=== PATIENT | female | born 1935 | race Caucasian/White ===

== ENCOUNTER 2017-05-20 05:46 | Emergency (ER) | payer OTHER ==
[~2017-05-20] VITALS: Ht 149.9 cm; Wt 61.2 kg
[~2017-05-20 05:46] MED LIST: ALEVE220 MG PO; ASPIRIN EC325 MG PO; ASPIRIN325 MG PO; ATORVASTATIN CA20 MG PO; ATORVASTATIN TAB 20M; AZITHROMYCIN250 MG1 PO; AZITHROMYCIN500 M1 PO; AZMACORT20 G1 IH; Advair 250/50 Diskus IH; BACTRIM,SEPT1 TABLET PO; BUSPAR5 MG; BUSPAR5 MG PO; BUSPIRONE HCL5 MG PO; Buspar PO; CALTRATE 600600 MG PO; CEFTIN500 MG PO; CHLORASEPTIC177 ML MM; COLACE100 MG PO; COMBIVENT INH14.7 GM IH; COMBIVENT RESPIM4 GM IH; COMBIVENT RESPIM4 GM PO; COMBIVENT200 INHALA; COMBIVENT200 INHALA IH; Calcium Carbonate,Ca PO; Combivent IH; DESONIDE15 GM TP; DONNATAL1 TABLET PO; DUONEB 2.5-0.5 M3 ML IH; DUONEB3 ML IH; ENDOCET 5-3251 EACH PO; FLORASTOR250 MG PO; GAVISCON ES CH1 EACH PO; HYOSCYAMINE0.125 MG PO; IRON CHEWS15 MG PO; IRON PO; IRON325 M1 PO; K-DUR20 MEQ PO; LEVAQUIN750 MG PO; LEXAPRO10 MG; LEXAPRO10 MG PO; LEXAPRO5 MG PO; LIPITOR10 MG PO; LIPITOR20 MG PO; LITE COAT ASPI325 M1 PO; LOW DOSE ASPIRI81 M1 PO; Lanoxin,Digitek PO; Levaquin PO; Lipitor PO; METOPROLOL SUCC25 MG; METRONIDAZOLE500 MG PO; MUCINEX1200 MG PO; MULTIVITAMINS1 EA11 PO; MYCOSTATIN15 GM PO; NAPROSYN500 MG PO; NASONEX17 GM BOTH NARES; ONDANSETRON HCL4 MG PO; OXISTAT60 GM TP; PANTOPRAZOLE SO40 MG; PANTOPRAZOLE SO40 MG PO; PERCOCET 5/31 TABLET PO; POTASSIUM CHLO10 ME3; PRAVACHOL40 MG PO; PRAVASTATIN SOD40 MG PO; PREDNISONE20 MG PO; PROAIR HFA8.5 GM IH; PROMETHAZINE V240 ML PO; PROTONIX40 MG PO; Protonix PO; SINGULAIR10 MG PO; SPIRIVA RESPIMAT4 G1 IH; SPIRIVA RESPIMAT4 GM IH; SPIRIVA1 INHALATI IH; SUPRAX400 M1 PO; SYMBICORT60 INHALA1 IH; SYMBICORT60 INHALAT IH; THEO-24200 MG PO; THEO-24400 MG PO; THEO-DUR,THEOC100 MG PO; THEOPHYLLINE A200 M1 PO; THEOPHYLLINE400 MG PO; TOPROL XL25 MG PO; TOPROL XL6.25 MG PO; Toprol XL PO; ULTRAM50 MG PO; VENTOLIN HFA18 GM IH; VICODIN,LORT1 TABLET PO; ZOFRAN4 MG PO; Zithromax PO; [UNRECOGNIZED DRUG - SUPPLY]; predniSONE PO
[2017-05-20 06:30] LABS: BASOPHIL (%) 0.2 % (0-1); EOSINOPHIL (%) 0.1 % (0-5); HEMATOCRIT 33.2 % (36.0-46.0); HEMOGLOBIN 10.3 G/DL (11.9-15.5); IMMATURE GRANULOCYTE (%) 0.4 % (0.0-0.7); LYMPHOCYTE (%) 13.4 % (15-42); LYMPHOCYTE COUNT 1.8 K/uL (1.0-2.8); MCH 23.7 PG (29.0-34.0); MCV 76.5 FL (83-99); MONOCYTE (%) 7.2 % (3-12); NEUTROPHIL (%) 78.7 % (45-76); NEUTROPHIL COUNT 10.4 K/uL (1.8-6.4); PLATELET COUNT 255 K/uL (156-360); RBC DIS.WIDTH-CV 16.4 % (11.8-14.6); RBC DIS.WIDTH-SD 45.7 % (39-53); RED BLOOD COUNT 4.34 M/uL (3.80-5.20); WHITE BLOOD COUNT 13.2 K/uL (4.1-10.2)
[2017-05-20 06:41] LABS: ALBUMIN 3.3 g/dL (3.2-4.8)
[2017-05-20 06:42] LABS: CHLORIDE 106 mEq/L (99-109); POTASSIUM 3.7 mEq/L (3.7-5.4); SODIUM 136 mEq/L (136-147)
[2017-05-20 06:44] LABS: GLUCOSE 116 mg/dL (70-99); TOTAL PROTEIN 6.3 g/dL (6.4-8.3)
[2017-05-20 06:46] LABS: TOTAL BILIRUBIN 0.4 mg/dL (0.0-1.0)
[2017-05-20 06:47] LABS: ALKALINE PHOSPHATASE 93 IU/L (3-129)
[2017-05-20 06:48] LABS: CREATININE 0.8 mg/dL (0.6-1.3); GFR ESTIMATE (CALCULATED) > 59 mL/min/
[2017-05-20 06:49] LABS: AST (GOT) 11 IU/L (2-34); UREA NITROGEN (BUN) 18 mg/dL (9-23)
[2017-05-20 06:50] LABS: ALT (GPT) 8 IU/L (3-49)
[2017-05-20 06:51] LABS: LIPASE 26 U/L (1.0-51.0)
[2017-05-20 09:08] LABS: APPEARANCE CLEAR ((CLEAR)); BILIRUBIN NEGATIVE; BLOOD NEGATIVE; COLOR STRAW ((YELLOW)); GLUCOSE (STRIP) NEGATIVE; KETONES NEGATIVE; LEUKOCYTES NEGATIVE; NITRITE NEGATIVE; PROTEIN (STRIP) NEGATIVE; SPECIFIC GRAVITY 1.041 (1.000-1.030); UROBILINOGEN 0.2 MG/DL (0.2-1.0)
[2017-05-20] MEDS ORDERED: ZOFRAN4 MG PO (10:07)
[2017-05-20] MEDS ORDERED: BENTYL20 MG PO (10:07)
[2017-05-20 10:19] VITALS: BP 135/70
== END 2017-05-20 10:22 | disposition home or self-care (01) ==
LOC: EME 05:46
PROVIDERS: Emergency Medicine
DX: K52.9 Noninfective gastroenteritis and colitis, unspecified (principal); K57.30 Diverticulosis of large intestine without perforation or abscess without bleeding; J98.11 Atelectasis; J44.9 Chronic obstructive pulmonary disease, unspecified; E78.5 Hyperlipidemia, unspecified; Z90.49 Acquired absence of other specified parts of digestive tract; Z90.710 Acquired absence of both cervix and uterus; Z99.81 Dependence on supplemental oxygen; Z79.82 Long term (current) use of aspirin; Z87.891 Personal history of nicotine dependence
CPT/HCPCS: 74177; 80053; 81003; 83605; 83690; 85025; 93005; 99281; 99285; J1200; J2270; J7030

== ENCOUNTER 2017-05-23 03:51 | Inpatient (IN) | payer OTHER ==
[~2017-05-23] VITALS: Ht 149.9 cm; Wt 58.2 kg
[~2017-05-23 03:51] MED LIST changes: +BENTYL20 MG PO
[2017-05-23 05:18] LABS: CHLORIDE 105 mEq/L (99-109); POTASSIUM 3.3 mEq/L (3.7-5.4); SODIUM 137 mEq/L (136-147)
[2017-05-23 05:19] LABS: GLUCOSE 116 mg/dL (70-99)
[2017-05-23 05:23] LABS: CREATININE 0.7 mg/dL (0.6-1.3); GFR ESTIMATE (CALCULATED) > 59 mL/min/
[2017-05-23 05:24] LABS: UREA NITROGEN (BUN) 10 mg/dL (9-23)
[2017-05-23 05:25] LABS: TROP-I INTERPRETATION NEGATIVE; TROPONIN-I < 0.01 ng/mL (0.0-0.30)
[2017-05-23 05:56] LABS: HEMATOCRIT 29.3 % (36.0-46.0); HEMOGLOBIN 9.1 G/DL (11.9-15.5); MCH 23.9 PG (29.0-34.0); MCHC 31.1 G/DL (30.0-36.0); MCV 76.9 FL (83-99); RBC DIS.WIDTH-SD 47.4 % (39-53); RED BLOOD COUNT 3.81 M/uL (3.80-5.20); WHITE BLOOD COUNT 8.8 K/uL (4.1-10.2)
[2017-05-23 05:57] LABS: PLAT.SUFFICIENCY ADEQUATE
[2017-05-23 06:14] LABS: PLATELET COUNT 176 K/uL (156-360)
[2017-05-23] MEDS ORDERED: PREDNISONE20 MG PO (10:40)
[2017-05-23 16:05] VITALS: BP 157/74
[2017-05-23 16:29] LABS: TROP-I INTERPRETATION NEGATIVE; TROPONIN-I 0.01 ng/mL (0.0-0.30)
[2017-05-23 19:53] VITALS: BP 144/64
[2017-05-23 23:40] VITALS: BP 125/58
[2017-05-24 00:53] LABS: TROP-I INTERPRETATION NEGATIVE; TROPONIN-I 0.01 ng/mL (0.0-0.30)
[2017-05-24 03:39] VITALS: BP 140/68
[2017-05-24 07:32] LABS: HEMATOCRIT 30.3 % (36.0-46.0); HEMOGLOBIN 9.1 G/DL (11.9-15.5); MCH 23.6 PG (29.0-34.0); MCV 78.5 FL (83-99); PLATELET COUNT 188 K/uL (156-360); RBC DIS.WIDTH-CV 17.4 % (11.8-14.6); RBC DIS.WIDTH-SD 48.2 % (39-53); RED BLOOD COUNT 3.86 M/uL (3.80-5.20); WHITE BLOOD COUNT 9.9 K/uL (4.1-10.2)
[2017-05-24 08:01] LABS: CHLORIDE 108 MEQ/L (99-109); CREATININE 0.6 MG/DL (0.6-1.3); GFR ESTIMATE (CALCULATED) > 59 mL/min/; GLUCOSE 100 mg/dL (70-99); SODIUM 143 MEQ/L (136-147); UREA NITROGEN (BUN) 9 mg/dL (9-23)
[2017-05-24 08:07] LABS: POTASSIUM 5.3 MEQ/L (3.7-5.4)
[2017-05-24 09:00] VITALS: BP 154/70
[2017-05-24 12:22] VITALS: BP 162/70
[2017-05-24 23:14] VITALS: BP 126/61
[2017-05-25 05:43] LABS: HEMATOCRIT 29.1 % (36.0-46.0); HEMOGLOBIN 8.8 G/DL (11.9-15.5); MCH 23.5 PG (29.0-34.0); MCHC 30.2 G/DL (30.0-36.0); MCV 77.6 FL (83-99); PLATELET COUNT 208 K/uL (156-360); RBC DIS.WIDTH-CV 17.5 % (11.8-14.6); RBC DIS.WIDTH-SD 48.8 % (39-53); RED BLOOD COUNT 3.75 M/uL (3.80-5.20); WHITE BLOOD COUNT 10.2 K/uL (4.1-10.2)
[2017-05-25 06:09] LABS: CHLORIDE 104 MEQ/L (99-109); CREATININE 0.7 MG/DL (0.6-1.3); GFR ESTIMATE (CALCULATED) > 59 mL/min/; GLUCOSE 82 mg/dL (70-99); SODIUM 139 MEQ/L (136-147); UREA NITROGEN (BUN) 10 mg/dL (9-23)
[2017-05-25 06:10] LABS: POTASSIUM 3.9 MEQ/L (3.7-5.4)
[2017-05-25 07:33] VITALS: BP 157/77
[2017-05-25 15:30] VITALS: BP 136/65
[2017-05-25 23:20] VITALS: BP 124/60
[2017-05-26 05:56] LABS: HEMATOCRIT 26.7 % (36.0-46.0); HEMOGLOBIN 8.2 G/DL (11.9-15.5); MCH 23.8 PG (29.0-34.0); MCHC 30.7 G/DL (30.0-36.0); MCV 77.4 FL (83-99); PLATELET COUNT 195 K/uL (156-360); RBC DIS.WIDTH-CV 17.4 % (11.8-14.6); RBC DIS.WIDTH-SD 48.7 % (39-53); RED BLOOD COUNT 3.45 M/uL (3.80-5.20); WHITE BLOOD COUNT 7.6 K/uL (4.1-10.2)
[2017-05-26 06:22] LABS: CHLORIDE 104 MEQ/L (99-109); CREATININE 0.6 MG/DL (0.6-1.3); GFR ESTIMATE (CALCULATED) > 59 mL/min/; GLUCOSE 95 mg/dL (70-99); IRON 17 MCG/DL (35-150); SODIUM 138 MEQ/L (136-147); TRANSFERRIN (TIBC) 171.1 mg/dL (215-380); TRANSFERRIN SATUR. 10 % (20-55); UREA NITROGEN (BUN) 10 mg/dL (9-23)
[2017-05-26 08:21] LABS: FERRITIN 23 NG/ML (10-291)
[2017-05-26 08:32] LABS: FOLIC ACID (FOLATE) > 22.0 NG/ML (5.0-22.0)
[2017-05-26 09:09] VITALS: BP 177/76
[2017-05-26 11:45] VITALS: BP 154/67
[2017-05-26 16:47] VITALS: BP 151/67
[2017-05-26 19:24] VITALS: BP 158/70
[2017-05-26 23:32] VITALS: BP 136/63
[2017-05-27] VITALS (8 sets, daily range): BP systolic 106–147; BP diastolic 59–85
[2017-05-27 06:01] LABS: BASOPHIL (%) 0.1 % (0-1); EOSINOPHIL (%) 0.1 % (0-5); HEMATOCRIT 28.2 % (36.0-46.0); HEMOGLOBIN 8.8 G/DL (11.9-15.5); IMMATURE GRANULOCYTE (%) 0.6 % (0.0-0.7); LYMPHOCYTE (%) 14.5 % (15-42); LYMPHOCYTE COUNT 1.4 K/uL (1.0-2.8); MCH 24.2 PG (29.0-34.0); MCHC 31.2 G/DL (30.0-36.0); MCV 77.5 FL (83-99); MONOCYTE (%) 9.3 % (3-12); MONOCYTE COUNT 0.9 K/uL (0-0.8); NEUTROPHIL (%) 75.4 % (45-76); NEUTROPHIL COUNT 7.2 K/uL (1.8-6.4); PLATELET COUNT 210 K/uL (156-360); RBC DIS.WIDTH-CV 17.4 % (11.8-14.6); RBC DIS.WIDTH-SD 48.5 % (39-53); RED BLOOD COUNT 3.64 M/uL (3.80-5.20); WHITE BLOOD COUNT 9.6 K/uL (4.1-10.2)
[2017-05-27 06:22] LABS: ALBUMIN 2.8 G/DL (3.2-4.8); ALKALINE PHOSPHATASE 61 IU/L (3-129); ALT (GPT) 9 IU/L (3-49); AST (GOT) 17 IU/L (2-34); CHLORIDE 101 MEQ/L (99-109); CREATININE 0.6 MG/DL (0.6-1.3); GFR ESTIMATE (CALCULATED) > 59 mL/min/; GLUCOSE 74 mg/dL (70-99); POTASSIUM 3.7 MEQ/L (3.7-5.4); SODIUM 137 MEQ/L (136-147); TOTAL PROTEIN 5.7 G/DL (6.4-8.3); UREA NITROGEN (BUN) 11 mg/dL (9-23)
[2017-05-27 08:23] LABS: TOTAL BILIRUBIN 0.3 MG/DL (0.0-1.0)
[2017-05-28 03:43] VITALS: BP 147/72
[2017-05-28 05:17] LABS: BASOPHIL (%) 0 % (0-1); EOSINOPHIL (%) 0.3 % (0-5); HEMATOCRIT 29.5 % (36.0-46.0); IMMATURE GRANULOCYTE (%) 0.8 % (0.0-0.7); LYMPHOCYTE (%) 16.5 % (15-42); LYMPHOCYTE COUNT 1.3 K/uL (1.0-2.8); MCH 23.7 PG (29.0-34.0); MCHC 30.5 G/DL (30.0-36.0); MCV 77.6 FL (83-99); MONOCYTE (%) 9.9 % (3-12); MONOCYTE COUNT 0.8 K/uL (0-0.8); NEUTROPHIL (%) 72.5 % (45-76); NEUTROPHIL COUNT 5.5 K/uL (1.8-6.4); PLATELET COUNT 217 K/uL (156-360); RBC DIS.WIDTH-CV 17.4 % (11.8-14.6); RBC DIS.WIDTH-SD 48.7 % (39-53); WHITE BLOOD COUNT 7.6 K/uL (4.1-10.2)
[2017-05-28 05:41] LABS: ALBUMIN 2.9 G/DL (3.2-4.8); ALKALINE PHOSPHATASE 61 IU/L (3-129); ALT (GPT) 11 IU/L (3-49); AST (GOT) 12 IU/L (2-34); CHLORIDE 100 MEQ/L (99-109); CREATININE 0.6 MG/DL (0.6-1.3); GFR ESTIMATE (CALCULATED) > 59 mL/min/; GLUCOSE 76 mg/dL (70-99); POTASSIUM 3.5 MEQ/L (3.7-5.4); SODIUM 135 MEQ/L (136-147); TOTAL BILIRUBIN 0.3 MG/DL (0.0-1.0); TOTAL PROTEIN 5.5 G/DL (6.4-8.3); UREA NITROGEN (BUN) 12 mg/dL (9-23)
[2017-05-28 08:27] VITALS: BP 168/72
[2017-05-28 12:31] VITALS: BP 125/59
[2017-05-28 16:09] VITALS: BP 117/58
[2017-05-28 20:02] VITALS: BP 118/56
[2017-05-28 23:16] VITALS: BP 121/55
[2017-05-29 03:24] VITALS: BP 147/79
[2017-05-29 07:04] LABS: BASOPHIL (%) 0.1 % (0-1); EOSINOPHIL (%) 0.1 % (0-5); HEMATOCRIT 27.6 % (36.0-46.0); HEMOGLOBIN 8.3 G/DL (11.9-15.5); IMMATURE GRANULOCYTE (%) 0.7 % (0.0-0.7); LYMPHOCYTE (%) 13.2 % (15-42); MCH 23.2 PG (29.0-34.0); MCHC 30.1 G/DL (30.0-36.0); MCV 77.3 FL (83-99); MONOCYTE (%) 6.9 % (3-12); MONOCYTE COUNT 0.5 K/uL (0-0.8); PLATELET COUNT 225 K/uL (156-360); RBC DIS.WIDTH-CV 17.3 % (11.8-14.6); RBC DIS.WIDTH-SD 48.4 % (39-53); RED BLOOD COUNT 3.57 M/uL (3.80-5.20); WHITE BLOOD COUNT 7.6 K/uL (4.1-10.2)
[2017-05-29 07:43] LABS: CHLORIDE 102 MEQ/L (99-109); CREATININE 0.6 MG/DL (0.6-1.3); GFR ESTIMATE (CALCULATED) > 59 mL/min/; GLUCOSE 90 mg/dL (70-99); POTASSIUM 4.2 MEQ/L (3.7-5.4); SODIUM 136 MEQ/L (136-147); UREA NITROGEN (BUN) 14 mg/dL (9-23)
[2017-05-29 08:24] VITALS: BP 162/67
[2017-05-29 11:38] VITALS: BP 114/55
[2017-05-29 15:31] VITALS: BP 140/60
[2017-05-29 19:39] VITALS: BP 146/67
[2017-05-29 23:30] VITALS: BP 156/77
[2017-05-30 04:26] VITALS: BP 148/73
[2017-05-30 05:29] LABS: BASOPHIL (%) 0 % (0-1); EOSINOPHIL (%) 0.4 % (0-5); HEMATOCRIT 27.2 % (36.0-46.0); HEMOGLOBIN 8.2 G/DL (11.9-15.5); IMMATURE GRANULOCYTE (%) 0.5 % (0.0-0.7); LYMPHOCYTE (%) 16.7 % (15-42); LYMPHOCYTE COUNT 0.9 K/uL (1.0-2.8); MCH 23.6 PG (29.0-34.0); MCHC 30.1 G/DL (30.0-36.0); MCV 78.2 FL (83-99); MONOCYTE (%) 9.5 % (3-12); MONOCYTE COUNT 0.5 K/uL (0-0.8); NEUTROPHIL (%) 72.9 % (45-76); NEUTROPHIL COUNT 4.1 K/uL (1.8-6.4); PLATELET COUNT 214 K/uL (156-360); RBC DIS.WIDTH-CV 17.7 % (11.8-14.6); RBC DIS.WIDTH-SD 49.3 % (39-53); RED BLOOD COUNT 3.48 M/uL (3.80-5.20); WHITE BLOOD COUNT 5.6 K/uL (4.1-10.2)
[2017-05-30 06:06] LABS: CHLORIDE 103 MEQ/L (99-109); CREATININE 0.5 MG/DL (0.6-1.3); GFR ESTIMATE (CALCULATED) > 59 mL/min/; GLUCOSE 88 mg/dL (70-99); SODIUM 138 MEQ/L (136-147); UREA NITROGEN (BUN) 9 mg/dL (9-23)
[2017-05-30 07:46] VITALS: BP 160/72
[2017-05-30 11:02] VITALS: BP 128/61
[2017-05-30 16:47] VITALS: BP 120/57
[2017-05-30 20:21] VITALS: BP 128/61
[2017-05-30 23:44] VITALS: BP 145/65
[2017-05-31 04:07] VITALS: BP 135/63
[2017-05-31 06:09] LABS: HEMATOCRIT 27.9 % (36.0-46.0); HEMOGLOBIN 8.5 G/DL (11.9-15.5); MCV 78.6 FL (83-99)
[2017-05-31 07:20] VITALS: BP 141/67
[2017-05-31 11:33] VITALS: BP 114/55
[2017-05-31 16:10] VITALS: BP 124/58
[2017-06-01 00:02] VITALS: BP 132/60
[2017-06-01 05:52] LABS: BASOPHIL (%) 0.2 % (0-1); EOSINOPHIL (%) 0.4 % (0-5); HEMATOCRIT 29.3 % (36.0-46.0); HEMOGLOBIN 8.8 G/DL (11.9-15.5); IMMATURE GRANULOCYTE (%) 0.4 % (0.0-0.7); LYMPHOCYTE (%) 13.4 % (15-42); LYMPHOCYTE COUNT 0.7 K/uL (1.0-2.8); MCH 23.5 PG (29.0-34.0); MCV 78.3 FL (83-99); MONOCYTE (%) 9.2 % (3-12); MONOCYTE COUNT 0.5 K/uL (0-0.8); NEUTROPHIL (%) 76.4 % (45-76); NEUTROPHIL COUNT 4.2 K/uL (1.8-6.4); PLATELET COUNT 204 K/uL (156-360); RBC DIS.WIDTH-CV 18.2 % (11.8-14.6); RBC DIS.WIDTH-SD 50.5 % (39-53); RED BLOOD COUNT 3.74 M/uL (3.80-5.20); WHITE BLOOD COUNT 5.5 K/uL (4.1-10.2)
[2017-06-01 07:07] LABS: CHLORIDE 103 MEQ/L (99-109); CREATININE 0.6 MG/DL (0.6-1.3); GFR ESTIMATE (CALCULATED) > 59 mL/min/; GLUCOSE 94 mg/dL (70-99); POTASSIUM 4.1 MEQ/L (3.7-5.4); SODIUM 138 MEQ/L (136-147); UREA NITROGEN (BUN) 7 mg/dL (9-23)
[2017-06-01 08:07] VITALS: BP 139/62
[2017-06-01 16:55] VITALS: BP 167/78
[2017-06-02 00:01] VITALS: BP 124/56
[2017-06-02 03:47] VITALS: BP 140/63
[2017-06-02 07:52] VITALS: BP 133/59
[2017-06-02 15:23] VITALS: BP 107/62
[2017-06-03 01:11] VITALS: BP 139/65
[2017-06-03 07:26] LABS: BASOPHIL (%) 0.2 % (0-1); EOSINOPHIL (%) 1.5 % (0-5); EOSINOPHIL COUNT 0.1 K/uL (0-0.3); HEMATOCRIT 30.3 % (36.0-46.0); HEMOGLOBIN 8.9 G/DL (11.9-15.5); IMMATURE GRANULOCYTE (%) 0.4 % (0.0-0.7); LYMPHOCYTE (%) 24.9 % (15-42); LYMPHOCYTE COUNT 1.4 K/uL (1.0-2.8); MCH 23.3 PG (29.0-34.0); MCHC 29.4 G/DL (30.0-36.0); MCV 79.3 FL (83-99); MONOCYTE (%) 10.7 % (3-12); MONOCYTE COUNT 0.6 K/uL (0-0.8); NEUTROPHIL (%) 62.3 % (45-76); NEUTROPHIL COUNT 3.4 K/uL (1.8-6.4); PLATELET COUNT 217 K/uL (156-360); RBC DIS.WIDTH-CV 18.5 % (11.8-14.6); RBC DIS.WIDTH-SD 51.8 % (39-53); RED BLOOD COUNT 3.82 M/uL (3.80-5.20); WHITE BLOOD COUNT 5.5 K/uL (4.1-10.2)
[2017-06-03 07:32] LABS: CHLORIDE 103 MEQ/L (99-109); CREATININE 0.6 MG/DL (0.6-1.3); GFR ESTIMATE (CALCULATED) > 59 mL/min/; GLUCOSE 76 mg/dL (70-99); PHOSPHORUS 3.4 mg/dL (2.5-4.9); POTASSIUM 3.7 MEQ/L (3.7-5.4); SODIUM 142 MEQ/L (136-147); UREA NITROGEN (BUN) 5 mg/dL (9-23)
[2017-06-03 07:43] VITALS: BP 147/68
[2017-06-03 15:22] VITALS: BP 116/68
[2017-06-03 23:38] VITALS: BP 121/57
[2017-06-04 08:16] VITALS: BP 144/65
[2017-06-04] MEDS ORDERED: FERROUS SULFAT325 MG PO (11:43)
[2017-06-04] MEDS ORDERED: METOPROLOL SUCC25 MG PO (11:44)
[2017-06-04] MEDS ORDERED: POLYETHYLENE GL17 GM PO (11:45)
[2017-06-04] MEDS ORDERED: DOCUSATE SODIU100 MG PO (11:45)
[2017-06-04] MEDS ORDERED: CYANOCOBALAM1000 MCG PO (11:45)
[2017-06-04] MEDS ORDERED: PREDNISONE10 MG PO (11:46)
[2017-06-04] MEDS ORDERED: LIDOCAINE700 MG TP (11:47)
[2017-06-04] MEDS ORDERED: HYDROMORPHONE HC2 MG PO (11:47)
== END 2017-06-04 15:21 | DRG 391 ==
LOC: EME → EDBD 03:51 → EDOF 08:07 → 3EAST 08:07 → CANRESERV 08:10 → ENRESERV 08:10 → EDOF 08:20 → ENRESERV 13:56 → 3EAST 15:45
PROVIDERS: Hospitalist; Internal Medicine Gastroenterology; Physician Assistant
PROC: 0DB58ZX Excision of Esophagus, Via Natural or Artificial Opening Endoscopic, Diagnostic (ICD-10-PCS; principal; 2017-05-29)
PROC: 3E0G8GC Introduction of Other Therapeutic Substance into Upper GI, Via Natural or Artificial Opening Endoscopic (ICD-10-PCS; 2017-06-03)
DX: K22.0 Achalasia of cardia (principal); J44.1 Chronic obstructive pulmonary disease with (acute) exacerbation; R55 Syncope and collapse; J96.21 Acute and chronic respiratory failure with hypoxia; E86.0 Dehydration; S22.41XA Multiple fractures of ribs, right side, initial encounter for closed fracture; I25.119 Atherosclerotic heart disease of native coronary artery with unspecified angina pectoris; D50.9 Iron deficiency anemia, unspecified; K22.10 Ulcer of esophagus without bleeding; E87.6 Hypokalemia; K22.8 Other specified diseases of esophagus; M81.0 Age-related osteoporosis without current pathological fracture; K59.00 Constipation, unspecified; E78.2 Mixed hyperlipidemia; F32.9 Major depressive disorder, single episode, unspecified; W19.XXXA Unspecified fall, initial encounter; Y92.002 Bathroom of unspecified non-institutional (private) residence as the place of occurrence of the external cause; I10 Essential (primary) hypertension; Z79.899 Other long term (current) drug therapy; Z99.81 Dependence on supplemental oxygen; Z95.5 Presence of coronary angioplasty implant and graft; Z95.1 Presence of aortocoronary bypass graft; Z93.3 Colostomy status; Z90.710 Acquired absence of both cervix and uterus; Z87.891 Personal history of nicotine dependence; Z87.19 Personal history of other diseases of the digestive system; Z82.3 Family history of stroke
CPT/HCPCS: 71045; 71046; 71260; 73030; 74018; 74220; 80048; 80053; 80069; 82272; 82607; 82728; 82746; 83540; 84466; 84484; 85014; 85018; 85025; 85027; 87502; 88305; 88312; 93005; 94010; 94640; 94640 76; 94760; 94799; 97530 GO; 99202; 99281; 99285; J0456; J0585; J1200; J1644; J2405; J2930; J7030; J7512; J7644

== ENCOUNTER 2017-07-04 08:34 | Observation (INO) | payer OTHER ==
[~2017-07-04] VITALS: Ht 149.9 cm; Wt 42.4 kg
[~2017-07-04 08:34] MED LIST changes: +CYANOCOBALAM1000 MCG PO; +DOCUSATE SODIU100 MG PO; +FERROUS SULFAT325 MG PO; +HYDROMORPHONE HC2 MG PO; +LIDOCAINE700 MG TP; +METOPROLOL SUCC25 MG PO; +POLYETHYLENE GL17 GM PO; +PREDNISONE10 MG PO
[2017-07-04 09:40] LABS: HEMOGLOBIN 11.3 G/DL (11.9-15.5); MCH 26.5 PG (29.0-34.0); MCHC 30.5 G/DL (30.0-36.0); MCV 86.9 FL (83-99); PLATELET COUNT 175 K/uL (156-360); RBC DIS.WIDTH-CV 23.7 % (11.8-14.6); RBC DIS.WIDTH-SD 73.5 % (39-53); RED BLOOD COUNT 4.26 M/uL (3.80-5.20); WHITE BLOOD COUNT 4.7 K/uL (4.1-10.2)
[2017-07-04 09:42] LABS: BASOPHIL (%) 0.6 % (0-1); EOSINOPHIL (%) 0.6 % (0-5); IMMATURE GRANULOCYTE (%) 0.2 % (0.0-0.7); LYMPHOCYTE (%) 19.6 % (15-42); LYMPHOCYTE COUNT 0.9 K/uL (1.0-2.8); MONOCYTE (%) 8.6 % (3-12); MONOCYTE COUNT 0.4 K/uL (0-0.8); NEUTROPHIL (%) 70.4 % (45-76); NEUTROPHIL COUNT 3.3 K/uL (1.8-6.4)
[2017-07-04 09:44] LABS: INTER. NORMALIZED RATIO 1.1
[2017-07-04 09:47] LABS: PTT 24.1 SEC (25-37)
[2017-07-04 09:50] LABS: CHLORIDE 106 mEq/L (99-109); POTASSIUM 4.1 mEq/L (3.7-5.4); SODIUM 142 mEq/L (136-147)
[2017-07-04 09:51] LABS: GLUCOSE 109 mg/dL (70-99)
[2017-07-04 09:55] LABS: CREATININE 0.7 mg/dL (0.6-1.3); GFR ESTIMATE (CALCULATED) > 59 mL/min/
[2017-07-04 09:56] LABS: UREA NITROGEN (BUN) 6 mg/dL (9-23)
[2017-07-04 10:02] LABS: TROP-I INTERPRETATION NEGATIVE; TROPONIN-I 0.02 ng/mL (0.0-0.30)
[2017-07-04 11:12] LABS: VALPROIC ACID (DEPAKOTE) < 10.0 MCG/ML (50-100)
[2017-07-04] MEDS ORDERED: FERROUS SULFAT325 MG PO (12:27)
[2017-07-04 16:24] VITALS: BP 139/72
[2017-07-04 18:26] LABS: TROP-I INTERPRETATION NEGATIVE; TROPONIN-I 0.01 ng/mL (0.0-0.30)
[2017-07-04 18:52] VITALS: BP 121/60
[2017-07-04 19:17] LABS: APPEARANCE CLEAR ((CLEAR)); BILIRUBIN NEGATIVE; BLOOD NEGATIVE; COLOR STRAW ((YELLOW)); GLUCOSE (STRIP) NEGATIVE; KETONES NEGATIVE; LEUKOCYTES NEGATIVE; NITRITE NEGATIVE; PROTEIN (STRIP) NEGATIVE; SPECIFIC GRAVITY 1.005 (1.000-1.030); UCUL ADDED? NO; UROBILINOGEN 0.2 MG/DL (0.2-1.0)
[2017-07-04 23:11] VITALS: BP 145/70
[2017-07-05 02:33] LABS: TROP-I INTERPRETATION NEGATIVE; TROPONIN-I < 0.01 ng/mL (0.0-0.30)
[2017-07-05 03:58] VITALS: BP 143/67
[2017-07-05 05:39] LABS: HEMATOCRIT 36.8 % (36.0-46.0); HEMOGLOBIN 11.2 G/DL (11.9-15.5); MCH 26.5 PG (29.0-34.0); MCHC 30.4 G/DL (30.0-36.0); MCV 87.2 FL (83-99); PLATELET COUNT 161 K/uL (156-360); RBC DIS.WIDTH-CV 23.6 % (11.8-14.6); RBC DIS.WIDTH-SD 74.4 % (39-53); RED BLOOD COUNT 4.22 M/uL (3.80-5.20); WHITE BLOOD COUNT 4.6 K/uL (4.1-10.2)
[2017-07-05 06:03] LABS: CHLORIDE 105 MEQ/L (99-109); CREATININE 0.6 MG/DL (0.6-1.3); GFR ESTIMATE (CALCULATED) > 59 mL/min/; GLUCOSE 91 mg/dL (70-99); POTASSIUM 4.1 MEQ/L (3.7-5.4); SODIUM 140 MEQ/L (136-147); UREA NITROGEN (BUN) 6 mg/dL (9-23)
[2017-07-05 07:27] VITALS: BP 136/76
[2017-07-05 11:09] VITALS: BP 113/77
[2017-07-05 15:15] VITALS: BP 185/67
[2017-07-05] MEDS ORDERED: ATIVAN0.5 MG PO (16:48)
== END 2017-07-05 17:42 | disposition home or self-care (01) ==
LOC: EME 08:34 → EDOF 11:41 → ENRESERV 11:49 → EDOF 11:57 → ENRESERV 14:20 → 5WEST 16:14
PROVIDERS: Emergency Medicine; Internal Medicine
DX: R07.9 Chest pain, unspecified (principal); J44.9 Chronic obstructive pulmonary disease, unspecified; R09.02 Hypoxemia; Z99.81 Dependence on supplemental oxygen; Z87.891 Personal history of nicotine dependence; R00.0 Tachycardia, unspecified; I25.10 Atherosclerotic heart disease of native coronary artery without angina pectoris; K22.0 Achalasia of cardia; Z95.5 Presence of coronary angioplasty implant and graft; I10 Essential (primary) hypertension; E78.5 Hyperlipidemia, unspecified; K44.9 Diaphragmatic hernia without obstruction or gangrene; F41.9 Anxiety disorder, unspecified; Z79.82 Long term (current) use of aspirin; Z90.49 Acquired absence of other specified parts of digestive tract; Z90.710 Acquired absence of both cervix and uterus; Z88.0 Allergy status to penicillin; Z88.1 Allergy status to other antibiotic agents; Z91.048 Other nonmedicinal substance allergy status
CPT/HCPCS: 71045; 80048; 80164; 81003; 83880; 84484; 85025; 85027; 85610; 85730; 87502; 93005; 94640; 94640 76; 94799; 99202; 99281; 99285; G0378; G8978 GP CI; G8979 GP CH; G8980 GP CI; J1644

== ENCOUNTER 2017-07-06 08:51 | Emergency (ER) | payer OTHER ==
[~2017-07-06] VITALS: Ht 149.9 cm; Wt 58.6 kg
[~2017-07-06 08:51] MED LIST changes: +ATIVAN0.5 MG PO
[2017-07-06 09:27] LABS: BASOPHIL (%) 0.8 % (0-1); EOSINOPHIL (%) 1.2 % (0-5); EOSINOPHIL COUNT 0.1 K/uL (0-0.3); HEMATOCRIT 35.9 % (36.0-46.0); HEMOGLOBIN 11.2 G/DL (11.9-15.5); IMMATURE GRANULOCYTE (%) 0.2 % (0.0-0.7); LYMPHOCYTE (%) 15.8 % (15-42); LYMPHOCYTE COUNT 0.8 K/uL (1.0-2.8); MCH 27.3 PG (29.0-34.0); MCHC 31.2 G/DL (30.0-36.0); MCV 87.6 FL (83-99); MONOCYTE (%) 9.1 % (3-12); MONOCYTE COUNT 0.4 K/uL (0-0.8); NEUTROPHIL (%) 72.9 % (45-76); NEUTROPHIL COUNT 3.5 K/uL (1.8-6.4); PLATELET COUNT 161 K/uL (156-360); RBC DIS.WIDTH-CV 23.1 % (11.8-14.6); RBC DIS.WIDTH-SD 73.5 % (39-53); WHITE BLOOD COUNT 4.9 K/uL (4.1-10.2)
[2017-07-06 09:37] LABS: PTT 28.3 SEC (25-37)
[2017-07-06 09:40] LABS: CHLORIDE 107 mEq/L (99-109); POTASSIUM 4.1 mEq/L (3.7-5.4); SODIUM 137 mEq/L (136-147)
[2017-07-06 09:42] LABS: GLUCOSE 167 mg/dL (70-99)
[2017-07-06 09:46] LABS: CREATININE 0.7 mg/dL (0.6-1.3); GFR ESTIMATE (CALCULATED) > 59 mL/min/; UREA NITROGEN (BUN) 8 mg/dL (9-23)
[2017-07-06 10:11] LABS: TROP-I INTERPRETATION NEGATIVE; TROPONIN-I < 0.01 ng/mL (0.0-0.30)
[2017-07-06 10:25] LABS: THEOPHYLLINE 5.6 MCG/ML (10-20)
[2017-07-06 13:09] LABS: TROP-I INTERPRETATION NEGATIVE; TROPONIN-I < 0.01 ng/mL (0.0-0.30)
[2017-07-06 14:25] VITALS: BP 113/62
== END 2017-07-06 14:25 | disposition home or self-care (01) ==
LOC: EME 08:51
PROVIDERS: Emergency Medicine
DX: R07.89 Other chest pain (principal); K21.9 Gastro-esophageal reflux disease without esophagitis; J44.9 Chronic obstructive pulmonary disease, unspecified; E78.5 Hyperlipidemia, unspecified; F32.9 Major depressive disorder, single episode, unspecified; F41.9 Anxiety disorder, unspecified; Z79.51 Long term (current) use of inhaled steroids; Z79.82 Long term (current) use of aspirin; Z99.81 Dependence on supplemental oxygen; Z87.891 Personal history of nicotine dependence; Z93.3 Colostomy status; Z95.9 Presence of cardiac and vascular implant and graft, unspecified; Z90.49 Acquired absence of other specified parts of digestive tract; Z90.710 Acquired absence of both cervix and uterus; Z91.041 Radiographic dye allergy status; Z88.1 Allergy status to other antibiotic agents; Z88.0 Allergy status to penicillin; Z88.8 Allergy status to other drugs, medicaments and biological substances
CPT/HCPCS: 71045; 80048; 80198; 84484; 85025; 85610; 85730; 93005; 99281; 99285

== ENCOUNTER 2017-07-14 06:28 | Emergency (ER) | payer OTHER ==
[~2017-07-14] VITALS: Ht 149.9 cm; Wt 57.4 kg
[2017-07-14 07:20] LABS: BASOPHIL (%) 0.7 % (0-1); EOSINOPHIL (%) 2.6 % (0-5); EOSINOPHIL COUNT 0.1 K/uL (0-0.3); HEMATOCRIT 34.8 % (36.0-46.0); HEMOGLOBIN 10.9 G/DL (11.9-15.5); IMMATURE GRANULOCYTE (%) 0.2 % (0.0-0.7); LYMPHOCYTE (%) 19.7 % (15-42); LYMPHOCYTE COUNT 0.8 K/uL (1.0-2.8); MCH 27.3 PG (29.0-34.0); MCHC 31.3 G/DL (30.0-36.0); MCV 87.2 FL (83-99); MONOCYTE (%) 8.1 % (3-12); MONOCYTE COUNT 0.3 K/uL (0-0.8); NEUTROPHIL (%) 68.7 % (45-76); NEUTROPHIL COUNT 2.9 K/uL (1.8-6.4); PLATELET COUNT 184 K/uL (156-360); RBC DIS.WIDTH-CV 22.3 % (11.8-14.6); RBC DIS.WIDTH-SD 70.1 % (39-53); RED BLOOD COUNT 3.99 M/uL (3.80-5.20); WHITE BLOOD COUNT 4.2 K/uL (4.1-10.2)
[2017-07-14 07:47] LABS: TROP-I INTERPRETATION NEGATIVE; TROPONIN-I 0.02 ng/mL (0.0-0.30)
[2017-07-14 07:54] LABS: ALBUMIN 3.3 G/DL (3.2-4.8); ALKALINE PHOSPHATASE 78 IU/L (3-129); ALT (GPT) 8 IU/L (3-49); AST (GOT) 13 IU/L (2-34); CHLORIDE 107 MEQ/L (99-109); CREATININE 0.5 MG/DL (0.6-1.3); GFR ESTIMATE (CALCULATED) > 59 mL/min/; GLUCOSE 96 mg/dL (70-99); POTASSIUM 3.6 MEQ/L (3.7-5.4); SODIUM 141 MEQ/L (136-147); TOTAL BILIRUBIN 0.3 MG/DL (0.0-1.0); UREA NITROGEN (BUN) 5 mg/dL (9-23)
[2017-07-14 08:49] LABS: LIPASE 31 U/L (1.0-51.0)
[2017-07-14] MEDS ORDERED: TYLENOL WITH C1 EACH PO (09:11)
[2017-07-14 10:10] VITALS: BP 121/67
== END 2017-07-14 10:10 | disposition home or self-care (01) ==
LOC: EME 06:28
PROVIDERS: Emergency Medicine
DX: R10.13 Epigastric pain (principal); J44.9 Chronic obstructive pulmonary disease, unspecified; K21.9 Gastro-esophageal reflux disease without esophagitis; E78.5 Hyperlipidemia, unspecified; F41.9 Anxiety disorder, unspecified; F32.9 Major depressive disorder, single episode, unspecified; Z79.51 Long term (current) use of inhaled steroids; Z79.82 Long term (current) use of aspirin; Z99.81 Dependence on supplemental oxygen; Z87.891 Personal history of nicotine dependence; Z95.9 Presence of cardiac and vascular implant and graft, unspecified; Z93.3 Colostomy status; Z87.19 Personal history of other diseases of the digestive system; Z90.49 Acquired absence of other specified parts of digestive tract; Z90.710 Acquired absence of both cervix and uterus; Z91.041 Radiographic dye allergy status; Z88.1 Allergy status to other antibiotic agents; Z88.0 Allergy status to penicillin; Z88.8 Allergy status to other drugs, medicaments and biological substances
CPT/HCPCS: 71045; 80053; 83690; 84484; 85025; 93005; 99281; 99284; J2270; J2405; J7030

== ENCOUNTER 2017-10-29 07:17 | Emergency (ER) | payer OTHER ==
[~2017-10-29] VITALS: Ht 149.9 cm; Wt 55.9 kg
[~2017-10-29 07:17] MED LIST changes: +TYLENOL WITH C1 EACH PO
[2017-10-29 08:17] LABS: HEMATOCRIT 37.2 % (36.0-46.0); HEMOGLOBIN 11.9 G/DL (11.9-15.5); MCH 27.9 PG (29.0-34.0); MCV 87.1 FL (83-99); PLATELET COUNT 158 K/uL (156-360); RBC DIS.WIDTH-CV 15.2 % (11.8-14.6); RBC DIS.WIDTH-SD 48.1 % (39-53); RED BLOOD COUNT 4.27 M/uL (3.80-5.20); WHITE BLOOD COUNT 5.4 K/uL (4.1-10.2)
[2017-10-29 08:48] LABS: TROP-I INTERPRETATION NEGATIVE; TROPONIN-I < 0.01 ng/mL (0.0-0.30)
[2017-10-29 08:55] LABS: CHLORIDE 107 mEq/L (99-109); SODIUM 140 mEq/L (136-147)
[2017-10-29 08:57] LABS: GLUCOSE 102 mg/dL (70-99)
[2017-10-29 09:01] LABS: CREATININE 0.7 mg/dL (0.6-1.3); GFR ESTIMATE (CALCULATED) > 59 mL/min/
[2017-10-29 09:02] LABS: UREA NITROGEN (BUN) 8 mg/dL (9-23)
[2017-10-29 09:29] LABS: THEOPHYLLINE 8.6 MCG/ML (10-20)
[2017-10-29] MEDS ORDERED: PREDNISONE20 MG PO (09:56)
[2017-10-29 10:18] VITALS: BP 117/54
== END 2017-10-29 11:11 | disposition home or self-care (01) ==
LOC: EME 07:17
PROVIDERS: Nurse Practitioner Family
DX: J43.9 Emphysema, unspecified (principal); Z99.81 Dependence on supplemental oxygen; J45.909 Unspecified asthma, uncomplicated; Z87.891 Personal history of nicotine dependence; E78.5 Hyperlipidemia, unspecified; F32.9 Major depressive disorder, single episode, unspecified; F41.9 Anxiety disorder, unspecified; K21.9 Gastro-esophageal reflux disease without esophagitis; Z88.0 Allergy status to penicillin; Z88.8 Allergy status to other drugs, medicaments and biological substances
CPT/HCPCS: 71046; 80048; 80198; 84484; 85027; 93005; 94640; 99281; 99285; J7512

== ENCOUNTER 2017-11-06 07:52 | Inpatient (IN) | payer OTHER ==
[~2017-11-06] VITALS: Ht 149.9 cm; Wt 74.5 kg
[2017-11-06 08:07] LABS: HEMATOCRIT 36.8 % (36.0-46.0); MCH 27.4 PG (29.0-34.0); MCHC 32.6 G/DL (30.0-36.0); PLATELET COUNT 194 K/uL (156-360); RBC DIS.WIDTH-CV 15.4 % (11.8-14.6); RBC DIS.WIDTH-SD 47.2 % (39-53); RED BLOOD COUNT 4.38 M/uL (3.80-5.20); WHITE BLOOD COUNT 6.1 K/uL (4.1-10.2)
[2017-11-06 08:18] LABS: CHLORIDE 102 mEq/L (99-109); POTASSIUM 3.3 mEq/L (3.7-5.4); SODIUM 134 mEq/L (136-147)
[2017-11-06 08:19] LABS: GLUCOSE 118 mg/dL (70-99)
[2017-11-06 08:23] LABS: CREATININE 0.7 mg/dL (0.6-1.3); GFR ESTIMATE (CALCULATED) > 59 mL/min/
[2017-11-06 08:24] LABS: UREA NITROGEN (BUN) 9 mg/dL (9-23)
[2017-11-06 08:30] LABS: TROP-I INTERPRETATION NEGATIVE; TROPONIN-I 0.02 ng/mL (0.0-0.30)
[2017-11-06] MEDS ORDERED: ALEVE220 MG PO (11:08)
[2017-11-06] MEDS ORDERED: COLACE100 MG PO (11:18)
[2017-11-06 11:35] LABS: D-DIMER ELISA < 150.00 ng/mLDDU (<230)
[2017-11-06 12:11] VITALS: BP 141/85
[2017-11-06 14:33] LABS: TROP-I INTERPRETATION NEGATIVE; TROPONIN-I 0.01 ng/mL (0.0-0.30)
[2017-11-06 15:01] VITALS: BP 130/58
[2017-11-06 19:51] VITALS: BP 101/55
[2017-11-06 21:05] LABS: TROP-I INTERPRETATION NEGATIVE; TROPONIN-I < 0.01 ng/mL (0.0-0.30)
[2017-11-07] VITALS (7 sets, daily range): BP systolic 104–140; BP diastolic 53–64
[2017-11-07 05:15] LABS: HEMATOCRIT 36.7 % (36.0-46.0); HEMOGLOBIN 11.5 G/DL (11.9-15.5); MCH 26.6 PG (29.0-34.0); MCHC 31.3 G/DL (30.0-36.0); MCV 84.8 FL (83-99); PLATELET COUNT 197 K/uL (156-360); RBC DIS.WIDTH-CV 15.3 % (11.8-14.6); RBC DIS.WIDTH-SD 47.6 % (39-53); RED BLOOD COUNT 4.33 M/uL (3.80-5.20); WHITE BLOOD COUNT 5.8 K/uL (4.1-10.2)
[2017-11-07 05:42] LABS: CHLORIDE 103 MEQ/L (99-109); CREATININE 0.7 MG/DL (0.6-1.3); GFR ESTIMATE (CALCULATED) > 59 mL/min/; GLUCOSE 147 mg/dL (70-99); SODIUM 139 MEQ/L (136-147); UREA NITROGEN (BUN) 13 mg/dL (9-23)
[2017-11-07 05:57] LABS: POTASSIUM 4.9 MEQ/L (3.7-5.4)
[2017-11-08 03:55] VITALS: BP 139/62
[2017-11-08 07:52] VITALS: BP 124/60
[2017-11-08] MEDS ORDERED: PREDNISONE10 MG PO (09:40)
== END 2017-11-08 13:04 | disposition home or self-care (01) | DRG 191 ==
LOC: EME 07:52 → EDOF 09:52 → 5SOUTH 09:52 → ENRESERV 09:54 → 5SOUTH 12:05
PROVIDERS: Nurse Practitioner Family; Physician Assistant Medical
DX: J44.1 Chronic obstructive pulmonary disease with (acute) exacerbation (principal); Z99.81 Dependence on supplemental oxygen; K22.0 Achalasia of cardia; E87.1 Hypo-osmolality and hyponatremia; I25.10 Atherosclerotic heart disease of native coronary artery without angina pectoris; I10 Essential (primary) hypertension; E78.5 Hyperlipidemia, unspecified; F41.9 Anxiety disorder, unspecified; Z87.891 Personal history of nicotine dependence; Z95.5 Presence of coronary angioplasty implant and graft; E87.6 Hypokalemia; K21.9 Gastro-esophageal reflux disease without esophagitis; K59.09 Other constipation; K22.70 Barrett's esophagus without dysplasia; K44.9 Diaphragmatic hernia without obstruction or gangrene
CPT/HCPCS: 71046; 80048; 84484; 85027; 85379; 93005; 94640; 94640 76; 94799; 99202; 99281; 99285; J0456; J1650; J2920; J2930; J7512